=== PATIENT | male | born 1960 | race Two or more races ===

== ENCOUNTER → 2018-08-19 | Outpatient (CLI) | END | disposition home or self-care (01) ==

== ENCOUNTER → 2018-09-30 | Outpatient (CLI) | END | disposition home or self-care (01) ==

== ENCOUNTER → 2018-10-03 | Outpatient (CLI) | END | disposition home or self-care (01) ==

== ENCOUNTER 2018-10-17 05:28 | Inpatient (IN) | END 2018-10-18 17:45 | disposition home health service (06) | DRG 470 ==

== ENCOUNTER → 2018-10-28 | Outpatient (CLI) | payer BC ==
[~2018-10-28] MED LIST: ATOR40TA68 PO; METF100010 PO
--- NOTE | 2018-10-28 11:27 | PN ---
Date/Time of Note Date/Time of Note DATE: 10/28/18 TIME: 11:25 Outpatient Progress Note Chief Complaint 2-week postoperative appointment HPI 58-year-old male presents today for two-week postoperative appointment status post right total hip arthroplasty performed on 10/17/2018. Overall, patient states he is doing well. Patient does mention that he does get pain/soreness along the IT band status post surgery. No falls or injury since discharge from the hospital. Denies any chest pain/tightness, shortness of breath or difficulty breathing. Denies any calf pain. Patient is ambulatory with use of front wheeled walker. Does have stiffness to the right hip status post surgery. He does mention that home health nurse did not present to his house over the first 2 weeks. He does not have any complications or complaints of any issues since being home. Mentions that he experiences swelling to the right lower extremity after daily activities. Review of Systems Const: No Fever, no chills, no Fatigue, normal appetite, no diaphoresis. Resp: No SOB, no wheezing, no chest pain. CV: No chest pain, no palpitaions, no OZUNA. Physical Exam General Appearance: well-developed, well-nourished, in no acute distress. Right hip: Surgical wound is clean dry and intact and healing well. No signs of infection. No induration. No erythema. No discharge presentation. Normal sensory examination to light touch. Assisted in relation with front wheeled walker with limping gait. Patient is able to actively flex at the hip up to 65 degrees. Full extension. 5/5 strength on resistance with flexion and extension. External rotation not tested today. Negative Homans sign. Imaging: X-ray of the Right hip performed on 10/28/2018 showing all components appearing well aligned, attached and integrated to the bone. No signs of any lucency between metal and bone. Allergies Coded Allergies: No Known Allergies (Verified Allergy, Unknown, 10/17/18) Assessment/Plan Problems: (1) Status post right hip replacement * Continue with at-home physical therapy regimen and exercises which were discussed and displayed today. Option for outpatient physical therapy was communicated to patient the patient respectively declines as he would like to continue with therapy at home on his own. * Goal is to transition to independent ambulation but gradual transition was discussed. Patient may trial single-point cane for assisted ambulation prior to independent ambulating. * Pain medications as needed. Continue with aspirin up until 1 month status post surgery. * Patient will follow-up at 6 weeks postop. Medications Home Meds Reported Medications Metformin Hcl* (Metformin Hcl*) 1,000 Mg Tablet, 1000 MG PO BID, #30 TAB 10/17/18 Atorvastatin* (Atorvastatin*) 40 Mg Tablet, 40 MG PO QHS, #30 TAB 10/17/18 [place] COWART PA-C Oct 28, 2018 11:27
--- NOTE | 2018-10-29 07:23 | RADRPT ---
PROCEDURE: XR Right hip and pelvis. CLINICAL INDICATION: Right hip pain and pelvic pain. TECHNIQUE: 3 views. Frontal pelvis. Frontal and lateral right hip. COMPARISON: None. FINDINGS: The upper pelvis is not included on the images. Bilateral total hip arthroplasties which appears sati sfactory. There is no fracture, dislocation, or loosening. The soft tissues are normal. There is no lytic or blastic lesion. IMPRESSION: 1. Satisfactory postoperative appearance of both hips. 2. Upper pelvis not included on the images. RPTAT: QQ .Raza Hernandez MD, MD Date Time Electronically viewed and signed by .Raza Hernandez MD, MD on 10/29/2018 07:23 .R/
== END | disposition home or self-care (01) ==
LOC: HKI 10:56
PROVIDERS: ATTEND Orthopaedic Surgery
DX: Z47.1 Aftercare following joint replacement surgery (principal); Z96.641 Presence of right artificial hip joint
CPT/HCPCS: 73502

== ENCOUNTER → 2019-01-06 | Outpatient (CLI) | payer BC ==
--- NOTE | 2019-01-06 10:49 | PN ---
Date/Time of Note Date/Time of Note DATE: 01/06/19 TIME: 10:46 Assessment/Plan VTE Prophylaxis Pharmacological prophylaxis: other Assessment/Plan Assessment/Plan 58-year-old male who is recovering slowly after right total hip replacement. His job description involves heavy lifting, repeated bending and twisting. The patient is not ready to return to work at this time. He needs continued phy sical therapy for strengthening and endurance. The patient will follow-up in 2 months to determine his work status and to repeat x-rays. He is encouraged to progressively increase his activities. Subjective 24 Hr Interval Summary Free Text/Dictation William is a 58-year-old male who is about 2-1/2 months status post right total hip replacement. The patient states that he is progressing slowly. He still uses a cane for support for short distances and a walker for long distances. The patient reports decreased pain and improved range of motion with physical therapy. There is no history of fever or chills. Patient does not feel that he is ready to return to work Exam/Review of Systems Exam Vitals Vital signs are stable, patient is afebrile Exam Examination shows a pleasant male. Right hip incision is well-healed. Both hips have equal leg length. The patient walks with a cane. Range of motion of the right hip is terminally restricted. X-rays show bilateral total hip replacements in good position with no evidence of loosening. DELMA MANZANARES Jan 06, 2019 10:49
--- NOTE | 2019-01-07 07:52 | RADRPT ---
PROCEDURE: Pelvis and right hip study CLINICAL INDICATION: Pain TECHNIQUE: AP pelvis and AP and frog lateral views of the right hip were performed. COMPARISON: Pelvic and right hip study 11/25/2018 FINDINGS: Unremarkable bilateral hip prosthesis. No acute fractures. No evidence of dislocations. No focal bony blastic or lytic lesions. Soft tissues are unremarkable. IMPRESSION: 1. Unremarkable bilateral hip prosthesis without acute fractures or malalignment. RPTAT:AAJJ Physician Cameron Date Time Electronically viewed and signed by Dorota Alford Physician on 01/07/2019 07:52 BM/
== END | disposition home or self-care (01) ==
LOC: HKI 10:10
PROVIDERS: ATTEND Orthopaedic Surgery
DX: Z09 Encounter for follow-up examination after completed treatment for conditions other than malignant neoplasm (principal); Z96.641 Presence of right artificial hip joint
CPT/HCPCS: 73502